=== PATIENT | male | born 1970 | race American Indian/Alaskan Native ===

== ENCOUNTER 2017-01-09 06:16 | Inpatient (IN) | payer MEDICAID ==
[2017-01-09 06:17] VITALS: BMI 40.1
--- NOTE | 2017-01-09 07:32 | ED PDOC ---
Lower Extremity Pain/Injury Time Seen by Provider: 01/09/17 07:15 Chief Complaint (Nursing): Lower Extremity Problem/Injury Chief Complaint (Provider): Right knee pain History Per: Patient History/Exam Limitations: no limitations Onset/Duration Of Symptoms: Persistent (2 months), Worse Since (yesterday) Current Symptoms Are (Timing): Still Present Additional Complaint(s): 46yo male, past medical history of hypertension, diabetes, asthma, presents to the ED for evaluation of right lower extremity pain, worse on his knee, present for the past 2 months. Patient states pain worsened yesterday, prompting his visit today. Patient states he has been taking Motrin as needed for the pain, with minimal relief. Patient also denies any trauma, injury to his knee. He denies fever, chills, chest pain, numbness, tingling. Patient offers no other medical complaints. - Knee Currently Unable To: Bear Weight, Bend Or Move Past Medical History Reviewed: Historical Data, Nursing Documentation, Vital Signs Vital Signs: Last Vital Signs Temp 98.0 F 01/09/17 06:37 Pulse 82 01/09/17 06:40 Resp 18 01/09/17 06:37 BP 146/88 01/09/17 06:37 Pulse Ox 94 L 01/09/17 06:37 - Medical History PMH: Asthma, Bronchitis, Diabetes, HTN, Hypercholesterolemia, Kidney Stones ( 2008), Sleep Apnea - Surgical History Surgical History: Cholecystectomy (2008) - Family History Family History: States: No Known Family Hx, Unknown Family Hx - Living Arrangements Living Arrangements: With Family - Social History Current smoker - smoking cessation education provided: No Ex-Smoker (has not smoked in the last 12 months): No Alcohol: None Drugs: Denies - Immunization History Hx Tetanus Toxoid Vaccination: No Hx Influenza Vaccination: No Hx Pneumococcal Vaccination: Yes - Home Medications Home Medications: Ambulatory Orders Medication Instructions Recorded Alogliptin Benzoate [Alogliptin] 25 mg PO DAILY 01/09/17 Ibuprofen [Motrin] 600 mg PO PRN PRN 01/09/17 Losartan [Cozaar] 50 mg PO DAILY 01/09/17 Montelukast Sodium [Singulair] 10 mg PO DAILY 01/09/17 amLODIPine [Norvasc] 5 mg PO DAILY 01/09/17 oxyCODONE/Acetaminophen [Percocet 5 - 325 mg PO Q4 01/09/17 5/325 mg Tab] - Allergies Allergies/Adverse Reactions: Allergies Allergy/AdvReac Type Severity Reaction Status Date / Time Penicillins Allergy Verified 10/26/16 00:18 Review of Systems ROS Statement: Except As Marked, All Systems Reviewed And Found Negative Constitutional: Negative for: Fever, Chills Cardiovascular: Negative for: Chest Pain Musculoskeletal: Positive for: Leg Pain (right knee) Neurological: Negative for: Numbness, Other (tingling) Physical Exam - Reviewed Nursing Documentation Reviewed: Yes Vital Signs Reviewed: Yes - Physical Exam Appears: Positive for: Non-toxic Head Exam: Positive for: ATRAUMATIC, NORMAL INSPECTION, NORMOCEPHALIC Skin: Positive for: Warm, Dry Eye Exam: Positive for: Normal appearance Neck: Positive for: Supple Cardiovascular/Chest: Positive for: Regular Rate, Rhythm Respiratory: Positive for: Normal Breath Sounds. Negative for: Respiratory Distress Extremity: Positive for: Tenderness (right anterior knee tenderness), Capillary Refill (less than two seconds), Swelling, Other (dorsalis pedis and popliteal pulses 2+). Negative for: Normal ROM (decreased ROM at right knee due to pain) , Pedal Edema, Calf Tenderness, Deformity Neurologic/Psych: Positive for: Alert, Oriented. Negative for: Motor/Sensory Deficits - Laboratory Results Result Diagrams: 01/09/17 08:13 01/09/17 08:13 - ECG O2 Sat by Pulse Oximetry: 94 Medical Decision Making Medical Decision Making: Time: 721 Impression: Right knee pain Plan: -- Case discussed with Dr. Parnell, who is patient's orthopedist as per pt. -- Labs Reassess Time: 739 Dr. Parnell recommends patient to be admitted. Diagnosis: locked knee. he states does not need further imaging. Case discussed with Dr. Aceves, who is covering for patients primary doctor, Dr. Tadeo Amato, .Dr. Aceves agrees to admit patient. Scribe Attestation: Documented by Kiera Duarte acting as a scribe for Andres Dill MD. Provider Attestation: All medical record entries made by the Scribe were at my direction and personally dictated by me. I have reviewed the chart and agree that the record accurately reflects my personal performance of the history, physical exam, medical decision making, and the department course for this patient. I have also personally directed, reviewed, and agree with the discharge instructions and disposition. Disposition - Clinical Impression Clinical Impression: Locked knee - Patient ED Disposition Is Patient to be Admitted: Yes Counseled Patient/Family Regarding: Studies Performed, Diagnosis - Disposition Disposition Time: 07:40 Condition: STABLE
--- NOTE | 2017-01-09 07:35 | CP.PCM.HP ---
History of Present Illness - History of Present Illness History of Present Illness: Orthopedic consultation note for Dr. Parnell Patient to be admitted by Dr. Aceves, medical H&P to follow 46M complains of right knee pain, which has been present for 2 months but worsened yesterday, so he presented to ER. Denies CP/SOB/dizziness/fever/chills/ recent trauma/falls. He says pain is getting worse over time, denies any prior injury or falls. He now has difficulty walking due to pain. PMH: DM, HTN, asthma no prior PSH allergy PCN Present on Admission - Present on Admission Any Indicators Present on Admission: No Review of Systems - Review of Systems All systems: reviewed and no additional remarkable complaints except - Constitutional Constitutional: As Per HPI - Cardiovascular Cardiovascular: As Per HPI - Respiratory Respiratory: As Per HPI - Gastrointestinal Gastrointestinal: As Per HPI - Hematologic/Lymphatic Hematologic: absent: As Per HPI, Easy Bleeding, Easy Bruising, Lymphadenopathy, Other Past Patient History - Infectious Disease Hx of Infectious Diseases: None - Past Medical History & Family History Past Medical History?: Yes - Past Social History Smoking Status: Unknown If Ever Smoked - CARDIAC Hx Hypercholesterolemia: Yes Hx Hypertension: Yes - PULMONARY Hx Asthma: Yes Hx Bronchitis: Yes Hx Sleep Apnea: Yes - NEUROLOGICAL Hx Neurological Disorder: No - HEENT Hx HEENT Problems: No - RENAL Hx Kidney Stones: Yes (2008) - ENDOCRINE/METABOLIC Hx Endocrine Disorders: Yes Hx Diabetes Mellitus Type 2: Yes - HEMATOLOGICAL/ONCOLOGICAL Hx Blood Disorders: No - INTEGUMENTARY Hx Dermatological Problems: No - MUSCULOSKELETAL/RHEUMATOLOGICAL Hx Musculoskeletal Disorders: No - GASTROINTESTINAL Hx Gastrointestinal Disorders: No - GENITOURINARY/GYNECOLOGICAL Hx Genitourinary Disorders: No - PSYCHIATRIC Hx Psychophysiologic Disorder: No Hx Emotional Abuse: No Hx Physical Abuse: No Hx Substance Use: No - SURGICAL HISTORY Hx Cholecystectomy: Yes (2008) - ANESTHESIA Hx Anesthesia: Yes Hx Anesthesia Reactions: No Hx Malignant Hyperthermia: No Meds Allergies/Adverse Reactions: Allergies Allergy/AdvReac Type Severity Reaction Status Date / Time Penicillins Allergy Verified 10/26/16 00:18 Physical Exam - Constitutional Appears: Well, In Acute Distress - Respiratory Exam Respiratory Exam: NORMAL BREATHING PATTERN - Cardiovascular Exam Additional comments: +DP/PT pulses - Expanded Lower Extremities Exam Right Knee exam: effusion (not warm, no erythema, small effusion), pain/laxity with valgus (complains of mild pain with varus stress, no laxity, neg adarsh, neg valgus stress, Pain with mcmurrays), tenderness (tenderness to medial joint line >lat, TTP to popliteal fossa) Ankle exam: FULL ROM, NORMAL INSPECTION Neuro vacular tendon exam: no vascular compromise (calves soft NT neg homans, + DP/PT pulses, sensation intact) - Neurological Exam Neurological exam: Alert, Oriented x3 - Psychiatric Exam Psychiatric exam: Normal Affect, Normal Mood - Skin Skin Exam: Dry, Intact, Normal Color, Warm Results - Vital Signs Recent Vital Signs: Last Vital Signs Temp 98.0 F 01/09/17 06:37 Pulse 82 01/09/17 06:40 Resp 18 01/09/17 06:37 BP 146/88 01/09/17 06:37 Pulse Ox 94 L 01/09/17 07:32 - Labs Result Diagrams: 01/09/17 08:13 01/09/17 08:13 - Impressions Impression: Patient Name / ID : NIRANJAN YEUNG / [id number] Exam Date : 11/12/2016 10:39:57 ( Approved ) Study Comment : Sex / Age : M / 46Y Creator : kelli suarez Dictator : Alan Katz MD Public Works Director : Admittance Attendant : Alan Katz MD Approver2 : Report Date : 11/12/2016 10:59:04 My Comment : PROCEDURE: MRI Right Knee HISTORY: Pain. COMPARISON: Right knee radiographs 10/26/2016. TECHNIQUE: Multiecho multiplanar sequences were performed through the right knee. FINDINGS: ANTERIOR CRUCIATE LIGAMENT:: Limited edema is appreciate socially in the periphery of the anterior cruciate ligaments may indicate partial tear or sprain. POSTERIOR CRUCIATE LIGAMENT:: Intact. MEDIAL MENISCUS:: Intact, no definite articular tear appreciated. LATERAL MENISCUS:: Intact, no definite articular tear appreciated. A tiny meniscal cyst seen associated with the lateral meniscus body MEDIAL COLLATERAL LIGAMENT:: Partial tear is difficult to exclude given mild peripheral edema both medially and laterally. LATERAL COLLATERAL LIGAMENT COMPLEX:: Intact. QUADRICEPS TENDON:: Intact. PATELLAR TENDON:: Intact. CARTILAGE:: Heterogeneous signal changes at the patellar from cartilage indicates degenerative joint disease well as [id number]-[id number] cortical sclerosis here. No definite osteophyte formation. Mild cartilaginous thinning is seen at the medial femorotibial compartment also compatible with mild degenerative joint disease. JOINT FLUID:: A mild suprapatellar bursa effusion evident and minimal sub cm popliteal cyst appears to be developing at the lateral popliteal fossa. OSSEOUS STRUCTURES:: Small bone island lateral tibial plateau. No fracture or bone contusion identified. OTHER FINDINGS: None. IMPRESSION: 1. A sprain or partial tear is question related to the ACL and MCL fibers without intrinsic full-thickness tear appreciated. 2. Mild medial and patellofemoral degenerative cartilaginous changes as well as patellar articular cortical sclerosis. 3. No definitive menses meniscal tear is appreciated although a small meniscal cyst measures only 2-3 mm related to the lateral meniscus body. Assessment & Plan (1) Locking of right knee Assessment and Plan: case d/w Dr. Parnell NPO will plan for right knee arthroscopy today labs ordered Status: Acute
[2017-01-09] MEDS ORDERED: Bacitracin Ointment 30 GM TUBE ONE (07:38)
[2017-01-09] MEDS ORDERED: MethylPREDNISolone Depo 40 mg/ml Inj ONE (07:38)
[2017-01-09] MEDS ORDERED: Bupivacaine 0.5% Inj(30mL) ONE (07:38)
[2017-01-09] MEDS ORDERED: ceFAZolin IV 1 gm in Dextrose 0 GM/0 ML BAG IVPB ONE (07:38)
[2017-01-09 08:24] LABS: BASO # 0.1 K/uL (0.0-0.2); BASO % 1.1 % (0.0-2.0); EOS # 0.1 K/uL (0.0-0.7); EOS % 1.8 % (0.0-4.0); HEMATOCRIT 50.6 % (35.0-51.0); LYMPH # 2.3 K/uL (1.0-4.3); LYMPH % 40.7 % (20.0-40.0); MEAN CELL VOLUME 72.9 fl (80.0-94.0); MEAN CORPUSCULAR HEMOGLOBIN 24.4 pg (27.0-31.0); MEAN CORPUSCULAR HGB CONC 33.4 g/dL (33.0-37.0); MEAN PLATELET VOLUME 7.8 fl (7.2-11.7); MONO # 0.7 K/uL (0.0-0.8); MONO % 12.1 % (0.0-10.0); NEUT # 2.5 K/uL (1.8-7.0); NEUT % 44.3 % (50.0-75.0); NRBC % 0.5 % (0.0-0.0); RED CELL DISTRIBUTION WIDTH 15.7 % (11.5-14.5); WHITE BLOOD COUNT 5.7 K/uL (4.8-10.8)
--- NOTE | 2017-01-09 08:44 | CARD ---
APPROVED REPORT EKG Measurement Heart [id number] CT [id number] <Conclusion> Normal sinus rhythm Left anterior fascicular block Abnormal ECG
[2017-01-09 09:16] LABS: ALB/GLOB RATIO 1.4 (1.0-2.1); ALKALINE PHOSPHATASE 65 U/L (38-126); ALT/SGPT 58 U/L (21-72); AST/SGOT 34 U/L (17-59); BILIRUBIN,TOTAL 0.8 mg/dl (0.2-1.3); BLOOD UREA NITROGEN 7 mg/dl (9-20); CALCIUM 8.9 mg/dL (8.4-10.2); CARBON DIOXIDE 21 mmol/L (22-30); CHLORIDE 110 mmol/L (98-107); GFR AFRICAN-AMERICAN > 60; GLUCOSE,RANDOM 112 mg/dL (75-110); POTASSIUM 3.8 MMOL/L (3.6-5.0); SODIUM 144 mmol/l (132-148); TOTAL PROTEIN 7.2 G/DL (6.3-8.2)
[2017-01-09 09:58] LABS: PARTIAL THROMBOPLASTIN TIME 42.3 Seconds (25.6-37.1)
[2017-01-09] MEDS ORDERED: Propofol 10 mg/ml Inj (20 ML) ONE (10:11)
[2017-01-09] MEDS ORDERED: Succinylcholine 200 mg/10 ml Inj IV ONE (10:11)
[2017-01-09] MEDS ORDERED: Rocuronium 10 mg/ml (5 ml) ONE ×2 (10:53→11:25)
[2017-01-09] MEDS ORDERED: Desflurane Inhalation Anesthetic Liq (240 ml) ONE (11:06)
[2017-01-09] MEDS: Lidocaine 1% Inj (20ml) ONE ×2 (11:24→11:40)
[2017-01-09 11:39] LABS: PARTIAL THROMBOPLASTIN TIME 34.7 Seconds (25.6-37.1)
[2017-01-09] MEDS ORDERED: Lactated Ringer's 1,000 ML IV ONE (11:41)
[2017-01-09] MEDS ORDERED: Neostigmine Methylsulfate 3mg/3ml Syringe IV ONE (11:42)
[2017-01-09] MEDS ORDERED: Neostigmine Methylsulfate 2 MG/2 ML ML IV ONE (11:42)
[2017-01-09] MEDS ORDERED: Morphine 1 mg/ml preservative-free Inj(Duramorph) ONE (11:51)
--- NOTE | 2017-01-09 12:26 | RAD ---
HISTORY: preop COMPARISON: No prior. FINDINGS: LUNGS: No acute infiltrate bilaterally. Linear atelectasis or fibrosis seen mildly at the mid superior left and inferior right lung zones. PLEURA: No significant pleural effusion identified, no pneumothorax apparent. CARDIOVASCULAR: Normal. OSSEOUS STRUCTURES: No significant abnormalities. VISUALIZED UPPER ABDOMEN: Normal. OTHER FINDINGS: None. IMPRESSION: And atelectasis or fibrosis bilateral inferior and mid left lung zones. No acute infiltrate or pleural effusion bilaterally.
[2017-01-09] MEDS: HYDROmorphone 0.5 mg/0.5 ml ISec IVP PRN ×3 (12:43→13:15)
[2017-01-09] MEDS ORDERED: Oxycodone/Acetaminophen 5/325 mg Tab PO PRN (12:49)
[2017-01-09 14:13] VITALS: RESP 18
[2017-01-09 16:48] VITALS: BP 138/75; PULSE 76; TEMP 98
--- NOTE | 2017-01-10 07:50 | PCM.SURG1 ---
Surgeon's Initial Post Op Note - Surgeon's Notes Surgeon: Soheila [place] Operator: CHLOE Mar Type of Anesthesia: General Endo Anesthesia Administered By: DR Leigh/Drew Pre-Operative Diagnosis: internal derangemnt L knee Operative Findings: tear medial meniscus/tear lateral meniscus. tricompartmental synovitis/intraarticular injection Post-Operative Diagnosis: same Operation Performed: arthroscopic partial medial/lateral meniscectomy. arthroscopic partial tricompartmental synovectomy. intraarticu;lar injection Specimen/Specimens Removed: synvoium/cartilage Estimated Blood Loss: EBL {In ML}: 5 Blood Products Given: N/A Drains Used: No Drains Post-Op Condition: Good Date of Surgery/Procedure: 01/10/17 Time of Surgery/Procedure: 11:40 (time in room/anaesthesia indcution time 1045)
[2017-01-10 09:08] VITALS: O2SAT 98
--- NOTE | 2017-01-11 10:29 | OP ---
PROCEDURE DATE: 01/09/2017 PREOPERATIVE DIAGNOSIS: Internal derangement of the right knee. POSTOPERATIVE DIAGNOSES: Tear of medial meniscus, tear of lateral meniscus, and tricompartmental synovitis. PROCEDURES PERFORMED: 1. Surgical arthroscopy, partial medial and lateral meniscectomy. 2. Surgical arthroscopy, partial tricompartmental synovectomy. 3. Intraarticular injection. SURGEON: Lex Parnell MD PULL OUT OPERATOR: Ophelia Ornelas, certified registered nursing surgical first assistant. ANESTHESIA: General endotracheal anesthesia. COMPLICATIONS: None. DRAINS: None. OPERATIVE INDICATION: Poli Richards is a gentleman who has been having knee pain and restricted range of motion. MRI examination was accomplished. Activity modification was accomplished and intraarticular injection. Pros, cons, risks, and benefits of surgical approach were discussed. Possibility of mechanical failure, infection, thromboembolic disease secondary or tertiary surgery were discussed. OPERATIVE PROCEDURE: After having obtained informed consent; after having identified side, site, and procedure and a critical pause/time-out; after satisfactory induction of the anesthetic, the patient identified as Poli Maurice in the supine position with all bony prominences well padded. The right lower extremity was prepped and free draped in usual fashion for extremity surgery. The tourniquet had been applied, but was not yet inflated. After exsanguinating the limb using a 6-inch Esmarch bandage, tourniquet which had been applied was inflated to 350 mmHg. The [employer] knee galo was employed. The joint was injected with 10 mL of 1% lidocaine without epinephrine. Using #11-blade followed by spreading, followed by introduction of the blunt trocar, the arthroscope was introduced. Examination of the joint commenced. There was found to be a dense tricompartmental synovitis. Triangulation was accomplished using #18-gauge spinal needle followed by #11-blade, followed by spreading, followed by introduction of blunt trocar. With the arthroscope anterolaterally, a careful partial tricompartmental synovectomy was accomplished using the arthroscopic shaver and the [employer] wand. The suprapatellar pouch was evaluated, patellofemoral joint with the arthroscope anterolaterally. The surgeon exerted a general valgus stress. Medial meniscus was found to be torn at the medial aspect. With the arthroscope anterolaterally surgeon exerting a gentle valgus stress using a combination of straight biting basket forceps and the side biting basket forceps, a partial medial meniscectomy was accomplished. With the arthroscope anterolaterally using the upbiting basket forceps and straight biting basket forceps, a partial medial meniscectomy was accomplished. The inner free edge was smoothed using the [employer] wand. With the arthroscope anterolaterally and with the knee in [id number] position, there was found to be a tear of the inner free edge of the lateral meniscus. With the arthroscope anterolaterally using a combination of the straight biting basket forceps and the side biting basket forceps, a partial lateral meniscectomy was accomplished. With the arthroscope anterolaterally, careful partial tricompartmental synovectomy was completed. Bleeding points were controlled with the [employer] wand. With the arthroscope anterolaterally, the inner free edge was smoothed using the [employer] wand. Using a combination of the straight biting basket forceps and the side biting basket forceps, a partial lateral meniscectomy was accomplished. The inner free edge was smoothed using the [employer] wand. The anterior cruciate ligament was found to be intact. A careful partial tricompartmental synovectomy was accomplished using the arthroscopic shaver and the arthroscopic wand. Portals were closed with interrupted Vicryl and nylon. Intraarticular injection was offered. Intraarticular injection of Marcaine, Duramorph, and Depo-Medrol was accomplished. Maurice Kumar compression dressing was applied. Lex Parnell MD
== END 2017-01-09 16:10 | disposition home or self-care (01) | DRG 222 ==
LOC: H.ER 06:16 → H.ERHOLD 08:08
PROVIDERS: ADMIT Internal Medicine; ATTEND Internal Medicine
PROC: 0SBC4ZZ Excision of Right Knee Joint, Percutaneous Endoscopic Approach (ICD-10-PCS; 2017-01-09)
PROC: 0SBC4ZZ Excision of Right Knee Joint, Percutaneous Endoscopic Approach (ICD-10-PCS; principal; 2017-01-09 11:15)
DX: S83.241A Other tear of medial meniscus, current injury, right knee, initial encounter (principal); I10 Essential (primary) hypertension; E11.9 Type 2 diabetes mellitus without complications; M65.9 Synovitis and tenosynovitis, unspecified; S83.281A Other tear of lateral meniscus, current injury, right knee, initial encounter; X58.XXXA Exposure to other specified factors, initial encounter; Y93.9 Activity, unspecified; Y92.9 Unspecified place or not applicable; E78.00 Pure hypercholesterolemia, unspecified; G47.30 Sleep apnea, unspecified; J45.909 Unspecified asthma, uncomplicated; Z88.0 Allergy status to penicillin